=== PATIENT | female | born 1945 | race Caucasian/White ===

== ENCOUNTER 2019-01-10 21:09 | Observation (INO) ==
[2019-01-10] MEDS ORDERED: Aspirin 81 MG TAB.CHEW PO STA (21:26)
--- NOTE | 2019-01-10 21:49 | Emergency Department Note ---
Disposition Clinical Impression: Dyspnea on minimal exertion Chest pain Qualifiers: Chest pain type: chest pain due to myocardial ischemia Ischemic chest pain type: stable angina pectoris Qualified Code(s): I20.8 - Other forms of angina pectoris Disposition: Admitted As Inpatient Condition: Fair Forms: ED Satisfaction Letter Time of Disposition: 23:06 General Adult HPI - General Chief complaint: ED Shortness of Breath/Dyspnea Stated complaint: SOB Chest pain Time Seen by Provider: 01/10/19 21:14 - History of Present Illness HPI Narrative: 73-year-old female history of prior MA and prior stroke presents to ED today with 2 days of shortness of breath and chest pain she reports that she has been having increasing difficulty performing her daily tasks at home, stating she is having worsening shortness of breath and chest pain with with her daily activities. She describes the pain as a pressure that is located in the center of her chest. This pain does not radiate. She rates the pain a 2 out of 10 on arrival to the ED, denies any radiation of the pain. She is a former smoker but quit more than 30 years ago. She is taking surround toe and a baby aspirin daily. She also reports taking a water pill, but also reports that she has not taken this pill for the last 2-3 days as the bottle fell onto her dresser and she was unable to retrieve it. EMS stated that on their arrival her O2 saturation was 91%, this quickly came up with administration nasal cannula oxygen. on arrival to the ED she is 99% on 2 L by nasal cannula. She denies any history of COPD. She reports nausea that is present over the same time, along with a nonproductive cough, and some mild pleuritic chest pain which she localizes to the upper sternum. She also reports a "feverish" feeling that she describes as a warmth in her face which comes and goes with the episodes of chest pain and shortness of breath. She denies any hemoptysis, numbness or tingling in the hands or feet, radiation of the pain to her back, abdominal pain, black or bloody stools, dysuria. Pain Scale: 0 - Related Data Home Medications Medication Instructions Recorded Confirmed Aspirin [Adult Low Dose Aspirin EC] 81 mg PO QPM 07/09/15 07/09/15 Insulin Glargine,Hum.rec.anlog 5 unit SQ DAILY 07/09/15 07/09/15 [Lantus Solostar] Insulin LISPRO [HumaLOG] 0 units SQ ACHS 07/09/15 07/09/15 Losartan Potassium [Cozaar] 50 mg PO DAILY 07/09/15 07/09/15 Metoprolol [Lopressor] 25 mg PO BID 07/09/15 07/09/15 Multivit-Min/FA/Lycopen/Lutein 1 each PO QPM 07/09/15 07/09/15 [Centrum Silver Tablet] [place]-3/Dha/Epa/Fish Oil [Fish Oil 1 each PO QPM 07/09/15 07/09/15 [place]-3 EC 1,200 mg] Rivaroxaban [Xarelto] 15 mg PO QPM 07/09/15 07/09/15 Brimonidine 0.2% [Alphagan] 1 drop RIGHT EYE BID 01/10/19 01/10/19 Chlorthalidone 25 mg PO DAILY 01/10/19 01/10/19 Latanoprost/Pf [Latanoprost 0.005% 1 drop OP HS 01/10/19 01/10/19 Eye Drop] Timolol Maleate 0.5% 1 drop RIGHT EYE BID 01/10/19 01/10/19 Travoprost [Travatan Z] 1 drop OP BID 01/10/19 01/10/19 Allergies Allergy/AdvReac Type Severity Reaction Status Date / Time Sulfa (Sulfonamide Allergy Swelling Verified 07/05/15 17:41 Antibiotics) of Lip/Tongue/Throat Locgwtv-[id number]-[id number] Reductase AdvReac Cramping Verified 07/09/15 20:36 Inhibitor of the [Statins] Muscles All systems ED: reviewed and negative except as stated. Review of Systems: As Per HPI Constitutional: Reports: fever ("Warmth in the face" present with the episodes of shortness of breath and chest). Denies: chills, weakness Cardiovascular: Reports: chest pain, dyspnea on exertion Respiratory: Reports: cough (Dry nonproductive cough), dyspnea. Denies: hemoptysis, sputum production Gastrointestinal: Reports: nausea (Mild nausea). 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 Absent: PERRL (Upward deviation of the left eye, corneal cloudiness.) - ENT ENT exam: mucous membranes moist - Neck Neck exam: Present: trachea midline - Chest Chest inspection: Present: normal inspection, symmetric chest wall rise - Respiratory Respiratory exam: Present: normal lung sounds bilaterally. Absent: respiratory distress, wheezes - Cardiovascular Cardiovascular exam: Present: regular rate, normal rhythm, +S4. Absent: systolic murmur, diastolic murmur - Abdominal Exam Abdominal exam: Present: soft, Non-Tender - Extremities Exam Extremities exam: Present: normal inspection. Absent: pedal edema, joint swelling, calf tenderness - Back Exam Back exam: Present: normal inspection, full ROM - Neurological Exam Neurological exam: Present: alert, oriented X3, CN II-XII intact (Other than left eye deviation noted above) - Psychiatric Psychiatric exam: Present: normal affect, normal mood. Absent: depressed, agitated, anxious - Skin Skin exam: Present: warm, dry, intact, normal color Course - Reevaluation(s) Reevaluation #1: Blood work delayed by a necessity for ultrasound line. Nurse notified me of this, and is attempting an ultrasound Time: 22:07 Reevaluation #2: A d-dimer was obtained Despite Well's score of 0 due to the patient's age, ill- defined symptoms, and pre-existing vascular disease. The value came back at 579, which is flagged as high by our lab, but age-adjusted d-dimer limit is 750, making this a negative result Time: 22:49 Reevaluation #3: While talking to the patient about the decision to admit her to the hospital, a temporarily turned off her oxygen. After about 2 minutes of talking her oxygen saturation fell to 95%, at which time I turned on 2 L but her nasal cannula with rapid return to 99% Time: 23:46 Vital Signs Temperature 99.4 F 07/16/19 21:13 Pulse Rate 73 01/10/19 21:13 Respiratory Rate 17 01/10/19 21:13 Blood Pressure 162/70 01/10/19 21:13 O2 Sat by Pulse Oximetry 99 01/10/19 21:13 Temperature 99.4 F 01/10/19 21:13 Pulse Rate 73 01/10/19 21:13 Respiratory Rate 17 01/10/19 21:13 Blood Pressure 162/70 01/10/19 21:13 O2 Sat by Pulse Oximetry 99 01/10/19 21:28 Oxygen Delivery Oxygen Delivery Nasal Cannula Medical Decision Making - MDM Narrative Medical decision making narrative: This pleasant 73-year-old female presented with 2 days of dyspnea and chest pain. The chest pain hit a history consistent with ACS , in that it was central in location, described as a pressure, worse with exertion, better with rest, and associated with shortness of breath. Furthermore the patient's history of MA and stroke were concerning for a vascular process. However her lab work including troponin and CBC, along with a chest x-ray and EKG that were not significantly different from old studies of record, were all negative for any acute process requiring intervention urgently. Aspects of her story's, such as a pleuritic aspect of her chest pain were concerning for PE, however an age adjusted d-dimer was negative. Heart score shown below puts patient at 12-16.6% risk of major acute cardiac event in the next 6 weeks, and as such she will be admitted for chest pain rule out. HEART Score for Major Cardiac Events from [email or web address] on 01/10/2019 All calculations should be rechecked by clinician prior to use RESULT SUMMARY: 5 points Moderate Score (4-6 points) Risk of MACE of 12-16.6%. INPUTS: History > 1 = Moderately suspicious EKG > 0 = Normal Age > 2 = ?65 Risk factors > 2 = ?3 risk factors or history of atherosclerotic disease Initial troponin > 0 = ?normal limit Chest X-Ray 01/10/19 21:20 IMPRESSION: Mild pulmonary vascular congestion with trace pleural fluid. Stable mild cardiomegaly. D/ / Harry Kirkland MD / Harry Kirkland MD Interpreting Provider: Harry Kirkland MD Vital Signs Temperature 99.4 F 01/10/19 21:13 Pulse Rate 73 01/10/19 21:13 Respiratory Rate 17 01/10/19 21:13 Blood Pressure 162/70 01/10/19 21:13 O2 Sat by Pulse Oximetry 99 01/10/19 21:13 Temperature 99.4 F 01/10/19 21:13 Pulse Rate 73 01/10/19 21:13 Respiratory Rate 01/10/19 23:44 Blood Pressure 164/68 01/10/19 23:44 O2 Sat by Pulse Oximetry 99 01/10/19 21:28 Oxygen Delivery Oxygen Delivery Nasal Cannula - Medical Records Medical records reviewed: Yes I reviewed the patient's medical records. - Lab Data Lab results reviewed: Yes I reviewed the patient's lab results. Result diagrams: 01/10/19 22:09 01/10/19 22:09 Lab Results 01/10/19 01/10/19 01/10/19 Range/Units 22:09 22:09 22:09 WBC 10.3 (4.3-11.1) K/mcL RBC 4.02 (3.82-4.97) M/mcL Hgb 12.7 (11.5-15.4) g/dL Hct 38.9 (35.3-44.9) % MCV 96.8 (83.0-100.0) fL MCH 31.6 (28.0-33.3) pg MCHC 32.6 (31.6-35.5) g/dL RDW 13.6 (11.5-14.5) % Plt Count 260 (140-400) K/mcL MPV 10.1 (9.4-12.4) fL Immature Gran % 0.3 (0-4) % Seg Neutrophils % 80.3 % Lymphocytes % 7.4 % Monocytes % 8.3 % Eosinophils % 3.2 % Basophils % 0.5 % Neutrophils # 8.3 (1.6-8.9) K/mcL Lymphocytes # 0.8 (0.6-4.6) K/mcL Monocytes # 0.9 (0.0-1.3) K/mcL Eosinophils # 0.3 (0.0-0.6) K/mcL Basophils # 0.1 (0.0-0.2) K/mcL PT 12.4 H (9.4-12.1) Seconds INR 1.1 APTT 33.6 (26.0-36.0) Seconds D-Dimer 579 H (0-500) ng/mLFEU Sodium 136 (136-145) mEq/L Potassium 3.9 (3.5-5.1) mEq/L Chloride 107 (98-107) mEq/L Carbon Dioxide 19 L (23-29) mEq/L BUN 20 (8-23) mg/dL Creatinine 0.94 (0.60-1.20) mg/dL Est GFR ( Amer) > 60 (> 60) Est GFR (Non-Af Amer) 58 L (> 60) BUN/Creatinine Ratio 21 (6-26) Glucose 255 H (70-105) mg/dL Calculated Osmolality 293 (280-300) Calcium 8.5 L (8.6-10.3) mg/dL Troponin I < 0.03 (< 0.04) ng/mL - Radiology Data Radiology results reviewed: Yes I reviewed the patient's radiology results. - EKG Data EKG #1 EKG results narrative: EKG recorded at 2123 shows an atrial paced rhythm at a rate of 70 MO interval of 185 QRS of 91 with a QTC of 435. No obvious signs of acute pathology. No ST segment elevations or depressions, slight T-wave inversions isolated to lead aVL. when compared with prior EKG recorded on 2015, lead aVL shows flattened T waves. No pathologic Q waves, good R-wave progression Heart Score - Score History: Moderately Suspicious EKG: Normal Age: Greater than 65 Risk Factors: Equal/Greater than 3 risk factor or history of atherosclerotic disease Troponin: Less than normal limit HEART Score Total: 5
--- NOTE | 2019-01-10 22:13 | Emergency Department Note ---
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) Nursing Notes Reviewed: Yes Vital Signs Reviewed: Yes - History of Present Illness Pain Scale: 0 - Related Data Home Medications Medication Instructions Recorded Confirmed Aspirin [Adult Low Dose Aspirin EC] 81 mg PO QPM 07/09/15 01/10/19 Insulin Glargine,Hum.rec.anlog 15 unit SQ DAILY 07/09/15 01/10/19 [Lantus Solostar] Insulin LISPRO [HumaLOG] 0 units SQ ACHS 07/09/15 01/10/19 Losartan Potassium [Cozaar] 25 mg PO DAILY 07/09/15 01/10/19 Metoprolol [Lopressor] 25 mg PO DAILY 07/09/15 01/10/19 Multivit-Min/FA/Lycopen/Lutein 1 each PO QPM 07/09/15 01/10/19 [Centrum Silver Tablet] [place]-3/Dha/Epa/Fish Oil [Fish Oil 1 each PO QPM 07/09/15 01/10/19 [place]-3 EC 1,200 mg] Rivaroxaban [Xarelto] 15 mg PO QPM 07/09/15 01/10/19 Brimonidine 0.2% [Alphagan] 1 drop RIGHT EYE BID 01/10/19 01/10/19 Chlorthalidone 25 mg PO DAILY 01/10/19 01/10/19 Latanoprost/Pf [Latanoprost 0.005% 1 drop OP HS 01/10/19 01/10/19 Eye Drop] Timolol Maleate 0.5% 1 drop RIGHT EYE BID 01/10/19 01/10/19 Travoprost [Travatan Z] 1 drop OP BID 01/10/19 01/10/19 Allergies Allergy/AdvReac Type Severity Reaction Status Date / Time Sulfa (Sulfonamide Allergy Swelling Verified 07/05/15 17:41 Antibiotics) of Lip/Tongue/Throat Ystrzwk-Gog-Rkq Reductase AdvReac Cramping Verified 07/09/15 20:36 Inhibitor of the [Statins] Muscles Constitutional: Reports: fever ("Warmth in the face" present with the episodes of shortness of breath and chest). Denies: chills, weakness Cardiovascular: Reports: chest pain, dyspnea on exertion Respiratory: Reports: cough (Dry nonproductive cough), dyspnea. Denies: hemoptysis, sputum production Gastrointestinal: Reports: nausea (Mild nausea). 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 - Lab Data Lab results reviewed: Yes I reviewed the patient's lab results. Result diagrams: 01/10/19 22:09 01/10/19 22:09 Lab Results 01/10/19 01/10/19 01/10/19 Range/Units 22:09 22:09 22:09 WBC 10.3 (4.3-11.1) K/mcL RBC 4.02 (3.82-4.97) M/mcL Hgb 12.7 (11.5-15.4) g/dL Hct 38.9 (35.3-44.9) % MCV 96.8 (83.0-100.0) fL MCH 31.6 (28.0-33.3) pg MCHC 32.6 (31.6-35.5) g/dL RDW 13.6 (11.5-14.5) % Plt Count 260 (140-400) K/mcL MPV 10.1 (9.4-12.4) fL Immature Gran % 0.3 (0-4) % Seg Neutrophils % 80.3 % Lymphocytes % 7.4 % Monocytes % 8.3 % Eosinophils % 3.2 % Basophils % 0.5 % Neutrophils # 8.3 (1.6-8.9) K/mcL Lymphocytes # 0.8 (0.6-4.6) K/mcL Monocytes # 0.9 (0.0-1.3) K/mcL Eosinophils # 0.3 (0.0-0.6) K/mcL Basophils # 0.1 (0.0-0.2) K/mcL PT 12.4 H (9.4-12.1) Seconds INR 1.1 APTT 33.6 (26.0-36.0) Seconds D-Dimer 579 H (0-500) ng/mLFEU Sodium 136 (136-145) mEq/L Potassium 3.9 (3.5-5.1) mEq/L Chloride 107 (98-107) mEq/L Carbon Dioxide 19 L (23-29) mEq/L BUN 20 (8-23) mg/dL Creatinine 0.94 (0.60-1.20) mg/dL Est GFR ( Amer) > 60 (> 60) Est GFR (Non-Af Amer) 58 L (> 60) BUN/Creatinine Ratio 21 (6-26) Glucose 255 H (70-105) mg/dL Calculated Osmolality 293 (280-300) Calcium 8.5 L (8.6-10.3) mg/dL Troponin I < 0.03 (< 0.04) ng/mL - Radiology Data Radiology results reviewed: Yes I reviewed the patient's radiology results. Chest X-Ray 01/10/19 21:20 IMPRESSION: Mild pulmonary vascular congestion with trace pleural fluid. Stable mild cardiomegaly. D/ / Harry Kirkland MD / Harry Kirkland MD Interpreting Provider: Harry Kirkland MD - EKG Data EKG #1 EKG attestation: Yes I reviewed and interpreted this EKG. EKG results narrative: EKG shows an atrial paced rhythm with ventricular rate of 70. No significant ST segment elevation or depression. No significant change from prior EKG dated 07/05/2015. Attestation Statement - Attestation Attestation: I, Aidan Arevalo MD, personally evaluated this patient and discussed their management with the resident physician. I reviewed the resident's note and agree with the documented findings, medical decision making, and plan of care. I reviewed the residents documentation and agree with the residents assessment and plan of care. I have personally had face to face time with the patient. I personally supervised and was present for the linares/critical portions of the following procedures completed by the resident: EKG interpretation. 73-year-old female presents to the emergency department with a complaint of increasing shortness of breath over the past 2 days. Also intermittent chest pain. Shortness breath is worse with exertion. Also the chest pain is associated with exertion and improved with rest. She does not wear home oxygen. She does have a history of CHF. History of atrial fibrillation with a pacemaker and is on Xarelto. She describes the chest pain as just a mild pressure-like discomfort in the mid chest. No radiation. There has been a mild nonproductive cough. Subjective low-grade fever. EMS reports on their arrival her oxygen saturation was 91% on room air. They placed her on oxygen by nasal cannula and she came into the upper 90s rapidly. On examination patient is a well-developed obese elderly female in no acute distress. She is alert and oriented 3. There is no cyanosis or diaphoresis. She speaks in full sentences and does not appear short of breath clinically. Breath sounds are clear and equal bilaterally. Heart regular rate and rhythm. Abdomen soft and nontender with normal bowel sounds. Trace pedal edema. EKG shows an atrial paced rhythm with ventricular rate of 70. No significant ST segment elevation or depression. No significant change from prior EKG dated 07/05/2015. Chest x-ray shows mild pulmonary vascular congestion with trace pleural fluid and stable mild cardiomegaly. Labs reviewed. Troponin less than 0.03. D-dimer 579 which falls within patient's age-adjusted range. The hospitalist, Dr. Wen, was consulted and accepted admission of the patient.
[2019-01-10 22:23] LABS: Basophils # 0.1 K/mcL (0.0-0.2); Basophils % 0.5 %; Eosinophils # 0.3 K/mcL (0.0-0.6); Eosinophils % 3.2 %; Hematocrit 38.9 % (35.3-44.9); Hemoglobin 12.7 g/dL (11.5-15.4); Immature Granulocytes % 0.3 % (0-4); Lymphocytes # 0.8 K/mcL (0.6-4.6); Lymphocytes % 7.4 %; Mean Corpuscular HGB Conc 32.6 g/dL (31.6-35.5); Mean Corpuscular Hemoglobin 31.6 pg (28.0-33.3); Mean Corpuscular Volume 96.8 fL (83.0-100.0); Mean Platelet Volume 10.1 fL (9.4-12.4); Monocytes # 0.9 K/mcL (0.0-1.3); Monocytes % 8.3 %; Neutrophils # 8.3 K/mcL (1.6-8.9); Platelet Count 260 K/mcL (140-400); Red Blood Count 4.02 M/mcL (3.82-4.97); Red Cell Distribution Width 13.6 % (11.5-14.5); Segmented Neutrophils % 80.3 %; White Blood Count 10.3 K/mcL (4.3-11.1)
[2019-01-10 22:32] LABS: INR 1.1; Prothrombin Time 12.4 Seconds (9.4-12.1)
[2019-01-10 22:35] LABS: Activated Partial Thrombo Time 33.6 Seconds (26.0-36.0)
[2019-01-10 22:45] LABS: BUN/Creatinine Ratio 21 (6-26); Blood Urea Nitrogen 20 mg/dL (8-23); Calcium 8.5 mg/dL (8.6-10.3); Carbon Dioxide 19 mEq/L (23-29); Chloride 107 mEq/L (98-107); Glucose 255 mg/dL (70-105); Osmolality,Calculated 293 (280-300); Potassium 3.9 mEq/L (3.5-5.1); Sodium 136 mEq/L (136-145); eGFR For African Americans > 60 (> 60); eGFR For Non-African Americans 58 (> 60)
[2019-01-10 22:46] LABS: Troponin I < 0.03 ng/mL (< 0.04)
[2019-01-11] MEDS ORDERED: Naloxone 0.4 MG/ML INJ IVP PRN (05:53)
[2019-01-11] MEDS ORDERED: Nitroglycerin 0.4 MG TAB.SUBL SL PRN (05:54)
[2019-01-11] MEDS ORDERED: *HR* Dextrose 50 % in Water (Syg) 50 ML SYRINGE IVP PRN (05:55)
[2019-01-11] MEDS ORDERED: D5% in Water 1,000 ML IVC PRN (05:55)
[2019-01-11] MEDS ORDERED: Dextrose Gel 15 GM/37.5 ML TUBE PO PRN ×2 (05:55)
--- NOTE | 2019-01-11 06:04 | Internal Med History&Physical ---
Date of Encounter: 01/11/19 Time of Encounter: 05:40 Internal Medicine - H&P: HPI Chief complaint: Chest pain Admitted From: Emergency Dept Plans for Post Hospital Care: Home History of present illness: Ms. Crawford is a 73 year old female Patient presented to the emergency department with shortness of breath and chest pain for 2 days. She says the pain is across her chest, but does not radiate.. When the pain started, she expected it to go away on its own, but it did not, in the last few hours prior to her presentation to the ER the pain increased. She also says that she has not had much of an appetite lately, and has felt nauseous but she has not vomited. She has been coughing, but is not productive. In the emergency department patient's dismissal vital signs: Temperature 99.4, pulse 73, respiratory rate 17, but pressure 162/70, O2 saturation 99% on 2 L. CBC within normal limits BMP notable of GFR 58 which is patient's baseline Troponin undetectable Calcium 8.5 INR 1.1 D-dimer 579, age adjusted, not elevated. Chest x-ray showed pulmonary vascular congestion with trace pleural fluid EKG: Atrial paced rhythm, rate 70, QTC 435. In the emergency department, patient received a 324 mg dose of aspirin, and was admitted to the hospital for further management. Upon my evaluation, patient is resting comfortably in hospital bed in no acute distress. She says that she still has chest pain, but it is 2 out of 10. She denies abdominal pain, nausea, vomiting, diarrhea and constipation. She is blind. She has a history of diabetes. She says that the oxygen that she was put on has helped her chest pain considerably. She is a full code. Past Med Surg Social Fam HX - Past Medical History Medical history: atrial fibrillation, CHF, diabetes, hyperlipidemia, hypertension, myocardial infarction Additional medical history: LEGALLY BLIND, PACEMAKER Psychiatric history: no psych history - Past Surgical History Surgical History: hysterectomy Additional surgical history: pacemaker, Left arm - Social History Smoking Status: Never smoker Smokeless Tobacco Status: No Alcohol use: none Drug use: none - Family History Mother Living Status: Father Living Status: Internal Medicine - H&P: Meds Aspirin [Adult Low Dose Aspirin EC] 81 mg PO QPM 07/09/15 [History] Insulin Glargine,Hum.rec.anlog [Lantus Solostar] 15 unit SQ DAILY 07/09/15 [History] Insulin LISPRO [HumaLOG] 0 units SQ ACHS 07/09/15 [History] Losartan Potassium [Cozaar] 25 mg PO DAILY 07/09/15 [History] Metoprolol [Lopressor] 25 mg PO DAILY 07/09/15 [History] Multivit-Min/FA/Lycopen/Lutein [Centrum Silver Tablet] 1 each PO QPM 07/09/15 [History] [place]-3/Dha/Epa/Fish Oil [Fish Oil [place]-3 EC 1,200 mg] 1 each PO QPM 07/09/15 [History] Rivaroxaban [Xarelto] 15 mg PO QPM 07/09/15 [History] Brimonidine 0.2% [Alphagan] 1 drop RIGHT EYE BID 01/10/19 [History] Chlorthalidone 25 mg PO DAILY 01/10/19 [History] Latanoprost/Pf [Latanoprost 0.005% Eye Drop] 1 drop OP HS 01/10/19 [History] Timolol Maleate 0.5% 1 drop RIGHT EYE BID 01/10/19 [History] Travoprost [Travatan Z] 1 drop OP BID 01/10/19 [History] Allergy/AdvReac Type Severity Reaction Status Date / Time Sulfa (Sulfonamide Allergy Swelling Verified 07/05/15 17:41 Antibiotics) of Lip/Tongue/Throat Vrxdthd-Tyn-Ftc Reductase AdvReac Cramping Verified 07/09/15 20:36 Inhibitor of the [Statins] Muscles All Systems PM: A 10-system review of systems was performed and is negative for pertinent findings except as documented above in the HPI. - Constitutional Vitals: Temp Pulse Resp BP Pulse Ox 98.5 F 67 22 161/64 94 01/11/19 04:55 01/11/19 04:55 01/11/19 04:55 01/11/19 04:55 01/11/19 04:55 General appearance: Present: cooperative, A&O X 3, pleasant, no acute distress, answers questions appropriately Exam: - - Head Head exam: Present: normal inspection - Eye Eye exam: Absent: scleral icterus - Respiratory Respiratory exam: Present: CTAB. Absent: decreased breath sounds, rales, respiratory distress, rhonchi, wheezes - Cardiovascular Cardiovascular exam: Present: RRR. Absent: diastolic murmur, systolic murmur - GI/Abdominal GI/Abdominal exam: Present: normal bowel sounds, soft. Absent: tenderness - Extremities Exam Extremities exam: Present: warm, radial pulses palpable and symmetrical. Abse nt: calf tenderness, pedal edema, tenderness - Neurological Exam Neurological exam: Present: no focal deficits, strengths equal and symetr throughout. Absent: motor sensory deficit, facial droop, speech deficit - Skin Skin exam: Present: dry, normal color, warm Internal Med - H&P Results - Labs CBC & Chem 7: 01/10/19 22:09 01/10/19 22:09 Labs: Short CBC 01/10/19 Range/Units 22:09 WBC 10.3 (4.3-11.1) K/mcL Hgb 12.7 (11.5-15.4) g/dL Hct 38.9 (35.3-44.9) % Plt Count 260 (140-400) K/mcL Neutrophils # 8.3 (1.6-8.9) K/mcL BMP 01/10/19 22:09 Sodium 136 Potassium 3.9 Chloride 107 Carbon Dioxide 19 L BUN 20 Creatinine 0.94 Glucose 255 H Calcium 8.5 L Cardiac Enzymes 01/10/19 Range/Units 22:09 Troponin I < 0.03 (< 0.04) ng/mL - Impressions ITS Impressions Chest X-Ray 01/10/19 21:20 IMPRESSION: Mild pulmonary vascular congestion with trace pleural fluid. Stable mild cardiomegaly. D/ / Harry Kirkland MD / Harry Kirkland MD Interpreting Provider: Harry Kirkland MD - Assessment and Plan (1) Chest pain Current Visit: Yes Status: Acute Assessment and plan: Now improved. Patient was placed on oxygen and says that her pain has almost gone away. Chest pain reproducible with palpation across the chest. Patient has been coughing which could be a potential cause. An echocardiogram performed last month showed: Impressions: LVEF 60%. Normal LV chamber size and function. Mild concentric left ventricular hypertrophy. Moderate left ventricular diastolic dysfunction. Normal right ventricular structure and function. Mild tricuspid regurgitation. Mild pulmonary hypertension. A device lead was visualized in the right atrium and right ventricle. Continue to trend troponin Cardiac monitoring Continue oxygen supplementation Nitroglycerin for pain as needed Qualifiers: Chest pain type: chest pain due to myocardial ischemia Ischemic chest pain type: stable angina pectoris Qualified Code(s): I20.8 - Other forms of angina pectoris (2) Diabetes Current Visit: No Status: Acute Assessment and plan: Patient is an insulin dependent diabetic Monitor sugars every 6 hours Nothing by mouth Low dose insulin sliding scale as needed Hold home meds. Qualifiers: Diabetes mellitus type: type 2 Diabetes mellitus complication status: with hyperglycemia Qualified Code(s): E11.65 - Type 2 diabetes mellitus with hyperglycemia; Z79.4 - assisted (current) use of insulin (3) Dyspnea on minimal exertion Current Visit: Yes Status: Acute Assessment and plan: Patient symptoms improved with 2 L of oxygen. She is not on oxygen at home. Patient may benefit from home oxygen. Patient's lung sounds clear on exam. Chest imaging showed mild pulmonary vascular changes with trace pleural fluid Continue oxygen supplementation Imaging chest pain as above (4) DVT prophylaxis Current Visit: Yes Status: Acute Assessment and plan: Patient has a history of atrial fibrillation, takes Xarelto. Continue Xarelto - Time Spent With Patient Total time spent is greater than 50% in coordination of care (as documented) at patient's floor/unit and/or counseling patient: Greater than 35 minutes
[2019-01-11 06:34] LABS: Mean Corpuscular HGB Conc 31.1 g/dL (31.6-35.5); Mean Corpuscular Hemoglobin 31.4 pg (28.0-33.3); Mean Corpuscular Volume 101.1 fL (83.0-100.0); Mean Platelet Volume 11.3 fL (9.4-12.4); Platelet Count 134 K/mcL (140-400); Red Blood Count 4.55 M/mcL (3.82-4.97); Red Cell Distribution Width 13.8 % (11.5-14.5); White Blood Count 10.2 K/mcL (4.3-11.1)
[2019-01-11 07:00] LABS: BUN/Creatinine Ratio 20 (6-26); Blood Urea Nitrogen 18 mg/dL (8-23); Carbon Dioxide 21 mEq/L (23-29); Chloride 104 mEq/L (98-107); Glucose 178 mg/dL (70-105); Osmolality,Calculated 292 (280-300); Potassium 3.8 mEq/L (3.5-5.1); Sodium 138 mEq/L (136-145); eGFR For African Americans > 60 (> 60); eGFR For Non-African Americans > 60 (> 60)
[2019-01-11 07:07] LABS: Troponin I < 0.03 ng/mL (< 0.04)
[2019-01-11] MEDS ORDERED: hydrOXYzine pamoate 25 MG CAPSULE PO ONE (07:15)
[2019-01-11] MEDS: Insulin LISPRO 300 UNITS/3 ML VIAL SQ SCH ×4 (07:58→23:44)
[2019-01-11 08:10] LABS: Hemoglobin 14.3 g/dL (11.5-15.4)
[2019-01-11] MEDS ORDERED: NON-FORMULARY MEDICATION 1 EACH EACH (Travoprost [Travatan Z] 1 DROP) OP SCH (09:00)
--- NOTE | 2019-01-11 09:24 | Event Note ---
<Ching Gillespie Bishop - Last Filed: 01/11/19 18:04> Date of Encounter: 01/11/19 Time of Encounter: 09:45 Ms. Crawford is a 73 year old female with PMH of atrial fibrillation on pacemaker and coumadin , CHF, diabetes, hyperlipidemia, hypertension, myocardial infarction presented to the emergency department with shortness of breath and chest pain for 2 days, substernal , no radiation aggravated by exertion and relieved by NG . today patient was doing better denies , chest pain , no SOB +mild cough with slightly swelling of lower limbs.She denies abdominal pain, nausea, vomiting, diarrhea and constipation EKG: Atrial paced rhythm,Chest x-ray showed pulmonary vascular congestion with trace pleural fluid, D dimer was 579 so CTA was done for her and came back negative for any pulmonary embolism her vitals : T 98.2, HR 70 , rr 16 , bp 162/61 lab are normal PE : General: no acute distress , A&AX3 HEENT: Atraumatic, Normocephaly. sclera unicteric Neck: supple , Full ROM Cardiac: regular rythm , S1+. S2+ Lungs: Normal Breath Sounds, No Wheeze, Rales, Rhonchi Abdomen: Soft, Non-Tender Skin:very dry skin , No rashes noted on visualized skin , Extremities: BLL Edema +1 , No Clubbing, No Cyanosis, , Normal Pulses A/P 1- CHEST PAIN : presented to the emergency department with shortness of breath and chest pain for 2 days, substernal , no radiation aggravated by exertion and relieved by NG troponin 0.03 EKG negative for any ischemic changes CTA was done for her and came back negative for any pulmonary embolism An echocardiogram performed last month showed:LVEF 60%. plan :Continue to trend troponin Cardiac monitoring Continue oxygen supplementation Nitroglycerin for pain as needed plan for stress test dorian 2- DM: She is a known case of DM . today blood sugar 178 . she is on sliding scale insulin continue accu check diabetic diet <Robinson Boyer - Last Filed: 01/11/19 18:37> Date of Encounter: 01/11/19 Ms Crawford is currently in observation for chest pain. CTA of chest - no PE. Appears to have pulmonary edema. Fullness in R hilum - ? adenopathy. Will make NPO at midnight. May need pulm to see. She is pain free now. Troponins negative x 3.
[2019-01-11] MEDS ORDERED: Isovue-370 500 ML BOTTLE IVP ONE (13:20)
[2019-01-11] MEDS ORDERED: Lacri-Lube 3.5 GM TUBE RIGHT EYE PRN (15:55)
[2019-01-11] MEDS ORDERED: Furosemide 20 MG/2 ML VIAL IVP ONE (16:33)
[2019-01-11] MEDS ORDERED: Aspirin Enteric Coated 81 MG Tablet PO SCH (18:00)
[2019-01-11] MEDS ORDERED: *HR* Rivaroxaban 15 MG TABLET PO SCH (18:00)
[2019-01-11] MEDS ORDERED: Latanoprost 2.5 ML BOTTLE BOTH EYES SCH (21:00)
[2019-01-11] MEDS ORDERED: Insulin DETEMIR 100 UNIT/ML X5UNITS SQ SCH (21:00)
[2019-01-12 05:22] LABS: Basophils # 0.1 K/mcL (0.0-0.2); Basophils % 0.8 %; Eosinophils # 0.4 K/mcL (0.0-0.6); Eosinophils % 4.7 %; Immature Granulocytes % 0.4 % (0-4); Lymphocytes # 0.7 K/mcL (0.6-4.6); Lymphocytes % 9.4 %; Mean Corpuscular HGB Conc 32.9 g/dL (31.6-35.5); Mean Corpuscular Hemoglobin 31.3 pg (28.0-33.3); Mean Corpuscular Volume 95.2 fL (83.0-100.0); Mean Platelet Volume 9.9 fL (9.4-12.4); Monocytes # 0.8 K/mcL (0.0-1.3); Monocytes % 10.5 %; Neutrophils # 5.9 K/mcL (1.6-8.9); Platelet Count 276 K/mcL (140-400); Red Blood Count 3.99 M/mcL (3.82-4.97); Red Cell Distribution Width 13.5 % (11.5-14.5); Segmented Neutrophils % 74.2 %; White Blood Count 7.9 K/mcL (4.3-11.1)
[2019-01-12 05:25] LABS: Hemoglobin 12.5 g/dL (11.5-15.4)
[2019-01-12 05:31] LABS: INR 1.3; Prothrombin Time 14.9 Seconds (9.4-12.1)
[2019-01-12 05:41] LABS: BUN/Creatinine Ratio 20 (6-26); Blood Urea Nitrogen 19 mg/dL (8-23); Calcium 9.1 mg/dL (8.6-10.3); Carbon Dioxide 24 mEq/L (23-29); Chloride 103 mEq/L (98-107); Glucose 165 mg/dL (70-105); Osmolality,Calculated 292 (280-300); Potassium 3.5 mEq/L (3.5-5.1); Sodium 138 mEq/L (136-145); eGFR For African Americans > 60 (> 60); eGFR For Non-African Americans 56 (> 60)
[2019-01-12] MEDS: Insulin LISPRO 300 UNITS/3 ML VIAL SQ SCH ×2 (05:48→12:10)
--- NOTE | 2019-01-12 08:14 | Pulmonology Consult Note ---
<Guy Dugan - Last Filed: 01/12/19 15:19> Date of Encounter: 01/12/19 Time of Encounter: 09:45 Assessment and Plan (1) Abnormal CT of the chest Status: Acute Multiple mildly prominent mediastinal nodes noted on CTA chest from 01/11/19 Pt is a former smoker with 10 pack year hx from [address] findings with pt and her daughter who was at bedside. Explained this may be pulmonary congestion vs malignancy. Recommend non-emergent bronchoscopy for lymph node biopsy. However pt does take Xarelto for her atrial fibrillation. Discussed with the patient that this will need to be stopped prior to the bronchoscopy. Recommend cardiology clearance prior to outpatient bronchoscopy. (2) Afib Status: Chronic Hx of Afib on Xarelto Pre-procedure cardiology evaluation recommended (3) Diastolic CHF Status: Chronic Presented complaining of chest pain and exertion dyspnea Echo from 12/02/18: - LVEF 60%. - Normal LV chamber size and function. - Mild concentric left ventricular hypertrophy. - Moderate left ventricular diastolic dysfunction. - Normal right ventricular structure and function. - Mild tricuspid regurgitation. - Mild pulmonary hypertension. - A device lead was visualized in the right atrium and right ventricle. Pt was given 20mg IV Lasix on 01/11/19 with no increase in UOP CT findings suggestive of pulmonary edema. She received 20mg IV Lasix without increase in UOP Mediastinal nodes may also be related with pulmonary congestion. Will follow as above (4) Diabetes Status: Chronic per primary team History of Present Illness Consult date: 01/12/19 Reason for consult: chest pain, abnormal CXR/CT Chief complaint: Chest Pain History of present illness: Ms. Crawford is a 73F with PMH of Afib, CHF, and diabetes. She was admitted on 01/11/19 for complaints of chest pain of 2 days duration. Vital signs in the ED were grossly unremarkable except for HTN of 162/70. CXR from the ED showed mild pulmonary vascular congestion with trace pleural fluid. EKG showed atrial paced rhythm. She was given 324mg ASA while in the ED. CTA chest was also obtained which was negative for PE, but did reveal multiple mildly prominent mediastinal nodes. Pulmonology was consulted for further evaluation of these CTA chest findings. Pt seen and examined at bedside. Reports her chest pain has resolved at this time. Denies any shortness of breath, increased cough, or increased sputum production. She reports she is a former smoker, and quit 20 years ago. Reports prior to that she smoked 1ppd for 10 years. She denies any night sweats, or hemoptysis. Past Med Surg Social Fam HX - Past Medical History Medical history: atrial fibrillation, CHF, diabetes, hyperlipidemia, hypertension, myocardial infarction Additional medical history: LEGALLY BLIND, PACEMAKER Psychiatric history: no psych history - Past Surgical History Surgical History: hysterectomy Additional surgical history: pacemaker, Left arm - Social History Smoking Status: Never smoker Smokeless Tobacco Status: No Alcohol use: none Drug use: none - Family History Mother Living Status: Father Living Status: Medications and Allergies Losartan Potassium [Cozaar] 25 mg PO QAM 07/09/15 [History] Metoprolol [Lopressor] 25 mg PO DAILY 07/09/15 [History] Multivit-Min/FA/Lycopen/Lutein [Centrum Silver Tablet] 1 each PO QAM 07/09/15 [History] [place]-3/Dha/Epa/Fish Oil [Fish Oil [place]-3 EC 1,200 mg] 1 each PO QAM 07/09/15 [History] Rivaroxaban [Xarelto] 15 mg PO QPM 07/09/15 [History] Brimonidine 0.2% [Alphagan] 1 drop RIGHT EYE BID 01/10/19 [History] Chlorthalidone 25 mg PO QAM 01/10/19 [History] Latanoprost/Pf [Latanoprost 0.005% Eye Drop] 1 drop RIGHT EYE HS 01/10/19 [Hi story] Timolol Maleate 0.5% 1 drop RIGHT EYE BID 01/10/19 [History] Travoprost [Travatan Z] 1 drop RIGHT EYE HS 01/10/19 [History] Aspirin [Lo-Dose Aspirin EC] 81 mg PO QAM 01/11/19 [History] Carboxymethylcell/Hypromellose [Genteal Gel Drops] 1 drop RIGHT EYE DAILY PRN 01/11/19 [History] Insulin ASPART [Novolog Flexpen] 8 - 10 units SQ ACHS 01/11/19 [History] Insulin Glargine,Hum.rec.anlog [Basaglar Kwikpen U-100] 15 units SQ HS 01/11/19 [History] Ubidecarenone/Vit E/Vit E Mix [Co-Enzyme Q10 100 mg Softgel] 100 mg PO QAM 01/11/19 [History] Allergy/AdvReac Type Severity Reaction Status Date / Time Sulfa (Sulfonamide Allergy Swelling Verified 01/11/19 10:02 Antibiotics) of Lip/Tongue/Throat [place]uj[place]o-Lvu-Jcy Reductase AdvReac Cramping Verified 01/11/19 10:02 Inhibitor of the [Statins] Muscles All Systems: The remainder of the systems were reviewed and are negative - Constitutional Constitutional: no chills, no fever(s), no weakness - Cardiovascular Cardiovascular: chest pain, edema, no dyspnea - Respiratory Respiratory: no hemoptysis, no wheezing, no chest congestion, no excessive phlegm production, no change in phlegm color - Hematologic/Lymphatic Hematologic/Lymphatic: no easy bleeding, no easy bruising Physical Examination General appearance: no acute distress, alert Eyes: nonicteric, other (pt is legally blind ) Neck: supple Effort: normal Inspection: normal Auscultation: bilateral: clear Cardiovascular: regular rate and rhythm Gastrointestinal: soft, non-tender, non-distended Integumentary: normal Extremities: no cyanosis, no edema, no clubbing, pink and warm, pulses normal, no ischemia or petechiae Musculoskeletal: no deformities Gait: normal posture non-focal exam, pupils equal and round mood appropriate, affect normal Results - Laboratory Findings CBC and BMP: 01/12/19 04:37 01/12/19 04:37 PT/INR, D-dimer PT 14.9 Seconds (9.4-12.1) H 01/12/19 04:37 D-Dimer 579 ng/mLFEU (0-500) H 01/10/19 22:09 Abnormal lab findings: Abnormal lab results Hct 46.0 % (35.3-44.9) H 01/11/19 06:16 MCV 101.1 fL (83.0-100.0) H 01/11/19 06:16 MCHC 31.1 g/dL (31.6-35.5) L 01/11/19 06:16 Plt Count 134 K/mcL (140-400) L 01/11/19 06:16 PT 14.9 Seconds (9.4-12.1) H 01/12/19 04:37 D-Dimer 579 ng/mLFEU (0-500) H 01/10/19 22:09 Carbon Dioxide 21 mEq/L (23-29) L 01/11/19 06:16 Est GFR (Non-Af Amer) 56 (> 60) L 01/12/19 04:37 Glucose 165 mg/dL (70-105) H 01/12/19 04:37 POC Glucose 185 mg/dL (70-99) H 01/11/19 19:44 Calcium 8.5 mg/dL (8.6-10.3) L 01/10/19 22:09 - Diagnostic Findings Chest x-ray: report reviewed, image reviewed CT scan - chest: report reviewed, image reviewed - Clinical Findings Intake & Output: Intake & Output 01/11/19 01/12/19 01/12/19 23:59 07:59 15:59 Output Total 300 / 300 Balance -300 / -300 Weight 104.4 kg Consult Discharge Plan - Plan Additional Instructions: follow up with cardiology / PCP , pulmonology for out patient bronchoscope Referrals: Steph Morillo, [employer] [Primary Care Provider] - 01/20/19 10:00 am <Marco Mckinney - Last Filed: 01/14/19 01:07> Date of Encounter: 01/12/19 All Systems: The remainder of the systems were reviewed and are negative Results - Laboratory Findings CBC and BMP: 01/12/19 04:37 01/12/19 04:37 PT/INR, D-dimer PT 14.9 Seconds (9.4-12.1) H 01/12/19 04:37 D-Dimer 579 ng/mLFEU (0-500) H 01/10/19 22:09 Abnormal lab findings: Abnormal lab results Hct 46.0 % (35.3-44.9) H 01/11/19 06:16 MCV 101.1 fL (83.0-100.0) H 01/11/19 06:16 MCHC 31.1 g/dL (31.6-35.5) L 01/11/19 06:16 Plt Count 134 K/mcL (140-400) L 01/11/19 06:16 PT 14.9 Seconds (9.4-12.1) H 01/12/19 04:37 D-Dimer 579 ng/mLFEU (0-500) H 01/10/19 22:09 Carbon Dioxide 21 mEq/L (23-29) L 01/11/19 06:16 Est GFR (Non-Af Amer) 56 (> 60) L 01/12/19 04:37 Glucose 165 mg/dL (70-105) H 01/12/19 04:37 POC Glucose 160 mg/dL (70-99) H 01/12/19 05:43 Calcium 8.5 mg/dL (8.6-10.3) L 01/10/19 22:09 - Clinical Findings Intake & Output: Intake & Output 01/12/19 01/12/19 01/12/19 07:59 15:59 23:59 Weight 104.4 kg - Attending Attestation I examined this patient and my medical decision-making was reviewed with the Resident Physician. I agree with the documented findings, disposition and treatment plan as described except to the extent set forth below. Patient seen and examined. Labs, radiology, chart personally reviewed. 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 I had long discussion with patient and her daughter about patient's CT chest findings and there is adenopathy. Patient is really not interested in any invasive procedures. I have explained to her about bronchoscopy and I suspect those lymph nodes are reactive in nature, however malignancies can't be ruled out and I have explained to them this can be done as outpatient if needed to be done and she is more interested to have everything to be done as outpatient. I have told them I will be happy to arrange it for her. She is on anticoagulation and that will need to be stopped at least 1-2 days. I have discussed this with primary team. Cardiovascular: stable, however for such elective procedure, I will prefer cardiology clearance and we need to know if anticoagulation can be interrupted. GI: Nutrition per dietary and GI prophylaxis per routine Thanks a lot for consultation and please call for any questions.
[2019-01-12] MEDS ORDERED: Acetaminophen 325 MG TABLET PO PRN (08:15)
--- NOTE | 2019-01-12 08:41 | Internal Med Progress Note ---
Hospitalist Progress Note - Encounter Date of Encounter: 01/12/19 - Exam Vitals: Temp Pulse Resp BP Pulse Ox 99.0 F 65 16 151/63 94 01/12/19 03:28 01/12/19 03:28 01/12/19 03:28 01/12/19 03:28 01/12/19 03:28 - Time Spent with Patient Total time spent is greater than 50% in coordination of care (as documented) at patient's floor/unit and/or counseling patient: Internal Medicine: Result - Labs CBC & Chem 7: 01/12/19 04:37 01/12/19 04:37 Labs: Short CBC 01/12/19 Range/Units 04:37 WBC 7.9 (4.3-11.1) K/mcL Hgb 12.5 D (11.5-15.4) g/dL Hct 38.0 (35.3-44.9) % Plt Count 276 D (140-400) K/mcL Neutrophils # 5.9 (1.6-8.9) K/mcL BMP 01/12/19 04:37 Sodium 138 Potassium 3.5 Chloride 103 Carbon Dioxide 24 BUN 19 Creatinine 0.97 Glucose 165 H Calcium 9.1 Cardiac Enzymes 01/11/19 Range/Units 12:04 Troponin I < 0.03 (< 0.04) ng/mL - ABG Interpretation ABG results: PT/INR, D-dimer PT 14.9 Seconds (9.4-12.1) H 01/12/19 04:37 D-Dimer 579 ng/mLFEU (0-500) H 01/10/19 22:09 - Impressions Impressions Chest CTA 01/11/19 13:20 IMPRESSION: 1. No evidence of pulmonary embolic disease. 2. Bilateral pleural effusions with ground-glass opacification throughout the lungs consistent with edema. 3. Multiple mildly prominent mediastinal nodes. Infiltrative process in the right hilum concerning for adenopathy. Consider pulmonary consultation and close follow-up following treatment to exclude underlying malignancy. 4. Mild cardiomegaly. D/ / 01/11/2019 16:17:08 Aaron Baeza MD / sofia Interpreting Provider: Aaron Baeza MD Consult Discharge Plan - Plan Referrals: Steph Morillo, [employer] [Primary Care Provider] -
[2019-01-12] MEDS ORDERED: Aspirin Enteric Coated 81 MG Tablet PO SCH (09:00)
[2019-01-12 11:57] VITALS: BP 132/69
--- NOTE | 2019-01-12 13:22 | Discharge Summary ---
<Ching Gillespie I - Last Filed: 01/12/19 16:50> - NOTES TO OUTPATIENT PROVIDER Notes to Outpatient Provider: Patient admitted due to chest pain shortness of breath .she is discharged to home with a plan to follow-up with her primary care provider , pulmonology , and cardiology for outpatient bronchoscope and to be compliant with medication. Orders not resulted at time of discharge: Pending orders 01/10/19 21:20 ECG 12 lead ECG [ECG] Stat Date of Encounter: 01/12/19 Time of Encounter: 08:10 - Discharge Diagnosis (1) HTN (hypertension) Priority: Secondary Status: Chronic Qualifiers: Hypertension type: essential hypertension Qualified Code(s): I10 - Essential (primary) hypertension (2) Diabetes Priority: Secondary Status: Chronic Qualifiers: Diabetes mellitus type: type 2 Diabetes mellitus complication status: with hyperglycemia Qualified Code(s): E11.65 - Type 2 diabetes mellitus with hyperglycemia; Z79.4 - long term care administrator (current) use of insulin (3) Chest pain Priority: Primary Status: Acute Qualifiers: Chest pain type: chest pain due to myocardial ischemia Ischemic chest pain type: stable angina pectoris Qualified Code(s): I20.8 - Other forms of angina pectoris (4) Afib Priority: Secondary Status: Chronic Qualifiers: Atrial fibrillation type: unspecified Qualified Code(s): I48.91 - Unspecified atrial fibrillation (5) Abnormal CT of the chest Priority: Secondary Status: Acute Hospital course: Book is a 73 year old female with PMH of atrial fibrillation on pacemaker and coumadin , CHF, diabetes, hyperlipidemia, hypertension, myocardial infarction presented to the emergency department with shortness of breath and chest pain for 2 days, substernal , no radiation aggravated by exertion and relieved by NG, EKG was done and was negative for any ischemic changes , troponin was negative ,Chest x-ray showed pulmonary vascular congestion with trace pleural fluid, D dimer was 579 so CTA was done for her and came back negative for any pulmonary embolism bur show pulmonary edema and mediastinal LAP , pulmonary doctor was consulted bronchoscope was recommend but she refused to do it as inpatient . patient is doing better denies , chest pain , no SOB +mild cough with slightly swelling of lower limbs.She denies abdominal pain, nausea, vomiting, diarrhea and constipation . patient is dicharged home on her home med and advised to fol lowup with the PCP , cardiology due to her anticoagulant for an out patient bronchoscope . - Time Spent with Patient Total time spent providing and/or coordinating discharge services: - Discharge Medications Prescriptions: Continued Metoprolol [Lopressor] 25 mg PO DAILY Losartan Potassium [Cozaar] 25 mg PO QAM Rivaroxaban [Xarelto] 15 mg PO QPM [place]-3/Dha/Epa/Fish Oil [Fish Oil [place]-3 EC 1,200 mg] 1 each PO QAM Multivit-Min/FA/Lycopen/Lutein [Centrum Silver Tablet] 1 each PO QAM Chlorthalidone 25 mg PO QAM Timolol Maleate 0.5% 1 drop RIGHT EYE BID Brimonidine 0.2% [Alphagan] 1 drop RIGHT EYE BID Latanoprost/Pf [Latanoprost 0.005% Eye Drop] 1 drop RIGHT EYE HS Travoprost [Travatan Z] 1 drop RIGHT EYE HS Aspirin [Lo-Dose Aspirin EC] 81 mg PO QAM Carboxymethylcell/Hypromellose [Genteal Gel Drops] 1 drop RIGHT EYE DAILY PRN PRN Reason: STYE Insulin ASPART [Novolog Flexpen] 8 - 10 units SQ ACHS Insulin Glargine,Hum.rec.anlog [Basaglar Kwikpen U-100] 15 units SQ HS Ubidecarenone/Vit E/Vit E Mix [Co-Enzyme Q10 100 mg Softgel] 100 mg PO QAM Home Medications: Losartan Potassium [Cozaar] 25 mg PO QAM 07/09/15 [History] Metoprolol [Lopressor] 25 mg PO DAILY 07/09/15 [History] Multivit-Min/FA/Lycopen/Lutein [Centrum Silver Tablet] 1 each PO QAM 07/09/15 [History] [place]-3/Dha/Epa/Fish Oil [Fish Oil [place]-3 EC 1,200 mg] 1 each PO QAM 07/09/15 [History] Rivaroxaban [Xarelto] 15 mg PO QPM 07/09/15 [History] Brimonidine 0.2% [Alphagan] 1 drop RIGHT EYE BID 01/10/19 [History] Chlorthalidone 25 mg PO QAM 01/10/19 [History] Latanoprost/Pf [Latanoprost 0.005% Eye Drop] 1 drop RIGHT EYE HS 01/10/19 [History] Timolol Maleate 0.5% 1 drop RIGHT EYE BID 01/10/19 [History] Travoprost [Travatan Z] 1 drop RIGHT EYE HS 01/10/19 [History] Aspirin [Lo-Dose Aspirin EC] 81 mg PO QAM 01/11/19 [History] Carboxymethylcell/Hypromellose [Genteal Gel Drops] 1 drop RIGHT EYE DAILY PRN 01/11/19 [History] Insulin ASPART [Novolog Flexpen] 8 - 10 units SQ ACHS 01/11/19 [History] Insulin Glargine,Hum.rec.anlog [Basaglar Kwikpen U-100] 15 units SQ HS 01/11/19 [History] Ubidecarenone/Vit E/Vit E Mix [Co-Enzyme Q10 100 mg Softgel] 100 mg PO QAM 01/11/19 [History] Allergies/Adverse Reactions: Allergy/AdvReac Type Severity Reaction Status Date / Time Sulfa (Sulfonamide Allergy Swelling Verified 01/11/19 10:02 Antibiotics) of Lip/Tongue/Throat Yrshywe-Dkx-Uhb Reductase AdvReac Cramping Verified 01/11/19 10:02 Inhibitor of the [Statins] Muscles Date of admission: 01/10/19 23:28 Primary care physician: Steph Morillo CNP Consults: 01/11/19 18:35 Consult to Pulmonology [CONS] Routine Consulting Provider: [facility] [place] Reason for Consult: shortness of breath and chest pain Call Completed: No 01/12/19 11:11 Consult to Cardiology [CONS] Routine Comment: Consulting Provider: Cardiology Brandi Reason for Consult: patient need non urgent bronchoscopy . evaluation for clearance og anticoagulation Call Completed: No Discharging clinician: Robinson Boyer Anticipated date of discharge: 01/12/19 - Constitutional Vitals: Temp Pulse Resp BP Pulse Ox 98.1 F 65 18 132/69 98 01/12/19 11:48 01/12/19 11:48 01/12/19 11:48 01/12/19 11:48 01/12/19 11:48 General appearance: Present: cooperative, A&O X 3, pleasant, no acute distress, answers questions appropriately Exam: . - Head Head exam: Present: atraumatic, normal inspection - Neck Neck exam general surgery: Present: full ROM, supple, trachea midline - Respiratory Respiratory exam: Present: CTAB - Cardiovascular Cardiovascular exam: Present: RRR, +S1, +S2 - GI/Abdominal GI/Abdominal exam: Present: normal bowel sounds, soft, no peritoneal signs - Neurological Exam Neurological exam: Present: alert, normal gait, oriented X3 - Psychiatric Psychiatric exam: Present: normal affect, normal mood - Skin Skin exam: Present: intact, normal color - Patient Status Disposition: Home, Self-Care Condition: Good Functional capacity at discharge: independent ambulation Overall status at discharge: patient is back to baseline - Discharge Instructions Follow Up With: Steph Morillo CHIEF EXECUTIVE [Primary Care Provider] - 01/20/19 10:00 am Additional Instructions: follow up with cardiology / PCP , pulmonology for out patient bronchoscope - Diet and Activity Activity: increase activity as tolerated Diet: advance to your usual diet <Robinson Boyer - Last Filed: 01/12/19 17:29> - NOTES TO OUTPATIENT PROVIDER Notes to Outpatient Provider: Cardiology asked for AC recommendations prior to bronch.Pt on xarelto for afib. High CHADS VASc score. Okay to hold xarelto 48 hr prior to procedure. Recommend lovenox 1 mg/kg BID 24 hours after holding. (take night before procedure and hold morning of.) Restart xarelto after procedure as soon as safe from pulmonology standpoint. . Orders not resulted at time of discharge: Pending orders 01/10/19 21:20 ECG 12 lead ECG [ECG] Stat Date of Encounter: 01/12/19 - Discharge Diagnosis (1) Diabetes Status: Chronic Qualifiers: Diabetes mellitus type: type 2 Diabetes mellitus complication status: with hyperglycemia Qualified Code(s): E11.65 - Type 2 diabetes mellitus with hyperglycemia; Z79.4 - snf (current) use of insulin (2) Afib Status: Chronic Qualifiers: Atrial fibrillation type: chronic Qualified Code(s): I48.2 - Chronic atrial fibrillation (3) Abnormal CT of the chest Status: Acute (4) Diastolic CHF Priority: Primary Status: Chronic Qualifiers: Heart failure chronicity: chronic Qualified Code(s): I50.32 - Chronic diast olic (congestive) heart failure (5) HTN (hypertension) Status: Chronic Qualifiers: Hypertension type: essential hypertension Qualified Code(s): I10 - Essential (primary) hypertension (6) Hyperlipemia Priority: Secondary Status: Chronic Qualifiers: Hyperlipidemia type: mixed hyperlipidemia Qualified Code(s): E78.2 - Mixed hyperlipidemia (7) Morbid obesity with BMI of 40.0-44.9, adult Priority: Secondary Status: Chronic Hospital course: Ms. Crawford is a 73 year old female - Time Spent with Patient Total time spent providing and/or coordinating discharge services: Date of admission: 01/10/19 23:28 Primary care physician: Steph Morillo CNP Consults: 01/11/19 18:35 Consult to Pulmonology [CONS] Routine Consulting Provider: [facility] Reason for Consult: shortness of breath and chest pain Call Completed: No - Constitutional Vitals: Temp Pulse Resp BP Pulse Ox 98.1 F 65 18 132/69 98 01/12/19 11:48 01/12/19 11:48 01/12/19 11:48 01/12/19 11:48 01/12/19 11:48 - Attending Attestation I examined this patient and my medical decision-making was reviewed with the Resident Physician on 01/12/19. I agree with the documented findings, disposition and treatment plan as described except to the extent set forth below. Ms Crawford has been hospitalized for chest pain. Troponin negative. Initially required oxygen. CTA of chest showed pulmonary edema and fullness in hilum. She does not want to pursue inpatient stress test or bronchoscopy. She is to follow up outpateint. At this time she is afebrile and at baseline. Exam: Alert Comfortable. Mucus membranes dry. Heart irreg and not tachy. No wheeze. Abd soft. Moves all extremities. No rash. Plan D/C today. D/C time 31min
[2019-01-12] MEDS ORDERED: Petrolatum, White OINT.PACK TP PRN (13:38)
--- NOTE | 2019-01-12 14:19 | Event Note ---
Date of Encounter: 01/12/19 Time of Encounter: 14:15 - Cardiology Event Note Cardiology asked for AC recommendations prior to bronch. Discussed with Dr. Madrid. Pt on xarelto for afib. High CHADS VASc score. Okay to hold xarelto 48 hr prior to procedure. Recommend lovenox 1 mg/kg BID 24 hours after holding. ( take night before procedure and hold morning of.) Restart xarelto after procedure as soon as safe from pulmonology standpoint. .
--- NOTE | 2019-01-13 23:30 | Electrocardiograph Report ---
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
== END 2019-01-12 14:44 | disposition home or self-care (01) ==
LOC: CDU 21:09 → EMEROOARM 21:09 → SUATTDRO 23:28 → CDU 01-11 00:40 → 3BNU 01-11 19:33
PROVIDERS: ADMIT Internal Medicine; ATTEND Internal Medicine

== ENCOUNTER 2021-08-09 14:16 | Inpatient (IN) ==
[2021-08-09] MEDS ORDERED: Ondansetron 4 MG/2 ML VIAL IVP ONE (14:31)
[2021-08-09] MEDS ORDERED: Ketorolac 30 MG/ML VIAL IVP ONE (14:31)
[2021-08-09] MEDS ORDERED: 0.9 % Sodium Chloride 1,000 ML IVC ONE (14:31)
[2021-08-09] MEDS ORDERED: Isovue-370 500 ML BOTTLE IVP ONE (14:32)
[2021-08-09 14:53] LABS: Bacteria,Urine Moderate per hpf (None-Few); Bilirubin,Urine Negative (Negative); Blood,Urine Small (Negative); Clarity,Urine Turbid (Clear); Color,Urine Yellow (Yellow); Glucose,Urine (UA) Normal (Normal); Ketones,Urine Negative (Negative); Leukocyte Esterase,Urine Large (Negative); Mucus,Urine Few per lpf (None-Few); Nitrite,Urine Negative (Negative); PH,Urine 6.5 pH Units (5.0-8.0); Protein,Urine 30 mg/dL (Neg-Trace); RBC,Urine 50-100 per hpf (0-3); Specific Gravity,Urine 1.016 (1.010-1.025); Squamous Epithelial Cell,Urine Moderate per hpf (None-Few); Urobilinogen,Urine Normal (Normal); WBC,Urine TNTC per hpf (0-3)
[2021-08-09] MEDS ORDERED: cefTRIAXone 1,000 MG in Water for inj. (sterile) 10 ML IVP ONE (14:55)
[2021-08-09 15:07] LABS: Basophils # 0.1 K/mcL (0.0-0.2); Basophils % 0.5 %; Eosinophils # 0.3 K/mcL (0.0-0.6); Hematocrit 39.9 % (35.3-44.9); Hemoglobin 13.2 g/dL (11.5-15.4); Immature Granulocytes % 0.5 % (0-4); Lymphocytes # 0.9 K/mcL (0.6-4.6); Lymphocytes % 6.5 %; Mean Corpuscular HGB Conc 33.1 g/dL (31.6-35.5); Mean Corpuscular Hemoglobin 31.7 pg (28.0-33.3); Mean Corpuscular Volume 95.7 fL (83.0-100.0); Mean Platelet Volume 10.2 fL (9.4-12.4); Monocytes # 0.8 K/mcL (0.0-1.3); Monocytes % 5.9 %; Platelet Count 296 K/mcL (140-400); Red Blood Count 4.17 M/mcL (3.82-4.97); Red Cell Distribution Width 13.1 % (11.5-14.5); Segmented Neutrophils % 84.6 %; White Blood Count 14.2 K/mcL (4.3-11.1)
[2021-08-09 15:15] LABS: INR 1.5; Prothrombin Time 16.9 Seconds (9.4-12.1)
[2021-08-09 15:18] LABS: Activated Partial Thrombo Time 38.2 Seconds (26.0-36.0)
[2021-08-09 15:27] LABS: Albumin/Globulin Ratio 1.3 (1.1-2.2); Bilirubin,Indirect 0.4 mg/dL (0.0-1.0); Bilirubin,Total 0.4 mg/dL (0.3-1.0); Potassium 3.9 mEq/L (3.5-5.1)
[2021-08-09] MEDS ORDERED: Morphine Sulfate 2 MG/ML SYRINGE IVP STA (15:37)
[2021-08-09] MEDS ORDERED: Metoclopramide 10 MG/2 ML VIAL IVP STA (15:57)
[2021-08-09] MEDS ORDERED: Mag Hydrox/Al Hydrox/Simeth 30 ML UDC PO PRN (17:23)
[2021-08-09] MEDS ORDERED: Melatonin 3 MG TABLET PO PRN (17:23)
[2021-08-09] MEDS ORDERED: *HR* OxyCODONE Immed Rel 5 MG TABLET PO PRN (17:23)
[2021-08-09] MEDS ORDERED: Naloxone 0.4 MG/ML INJ IVP PRN (17:23)
[2021-08-09] MEDS ORDERED: Acetaminophen 325 MG TABLET PO PRN (17:23)
[2021-08-09] MEDS ORDERED: 0.9 % Sodium Chloride 1,000 ML IVC SCH (17:30)
[2021-08-09] MEDS ORDERED: *HR* Dextrose 50 % in Water (Syg) 50 ML SYRINGE IVP PRN (17:47)
[2021-08-09] MEDS ORDERED: D5% in Water 1,000 ML IVC PRN (17:47)
[2021-08-09] MEDS ORDERED: Dextrose Gel 15 GM/37.5 ML TUBE PO PRN ×2 (17:47)
[2021-08-09] MEDS: Ondansetron ODT 4 MG TAB.RAPDIS SL PRN ×2 (17:56→22:22)
[2021-08-09] MEDS ORDERED: Furosemide 40 MG/4 ML VIAL IVP ONE (18:07)
[2021-08-09] MEDS ORDERED: Perflutren Lipid Microsphere 1.3 ML in 0.9 % Sodium Chloride 8.7 ML IVP PRN ×2 (18:08→18:10)
[2021-08-09 20:59] LABS: Adenovirus Not Detected (Not Detect); Bordetella Pertussis Not Detected (Not Detect); Chlamydophila pneumoniae Not Detected (Not Detect); Coronavirus 229E Not Detected (Not Detect); Coronavirus HKU1 Not Detected (Not Detect); Coronavirus NL63 Not Detected (Not Detect); Coronavirus OC43 Not Detected (Not Detect); Human Metapneumovirus Not Detected (Not Detect); Human Rhinovirus/Enterovirus Not Detected (Not Detect); Influenza A Subtype 2009 H1 Not Detected (Not Detect); Influenza B Not Detected (Not Detect); Mycoplasma pneumoniae Not Detected (Not Detect); Parainfluenza Virus 1 Not Detected (Not Detect); Parainfluenza Virus 2 Not Detected (Not Detect); Parainfluenza Virus 3 Not Detected (Not Detect); Parainfluenza Virus 4 Not Detected (Not Detect); Respiratory Syncytial Virus Not Detected (Not Detect); SARS-CoV-2 Not Detected (Not Detect)
[2021-08-09] MEDS ORDERED: Insulin LISPRO 300 UNITS/3 ML VIAL SUBQ SCH (21:00)
[2021-08-10] MEDS ORDERED: Isovue-300 50ML VIAL ONE (07:14)
[2021-08-10 07:16] LABS: Hematocrit 38.5 % (35.3-44.9); Hemoglobin 12.3 g/dL (11.5-15.4); Mean Corpuscular HGB Conc 31.9 g/dL (31.6-35.5); Mean Platelet Volume 10.5 fL (9.4-12.4); Platelet Count 228 K/mcL (140-400); Red Blood Count 3.97 M/mcL (3.82-4.97); Red Cell Distribution Width 13.5 % (11.5-14.5)
[2021-08-10] MEDS ORDERED: Insulin LISPRO 300 UNITS/3 ML VIAL SUBQ SCH (07:30)
[2021-08-10] MEDS ORDERED: *HR* Propofol 200 MG/20 ML VIAL IVP ONE (07:34)
[2021-08-10] MEDS ORDERED: Lidocaine -MPF 2% 5 ML VIAL ONE (07:34)
[2021-08-10] MEDS ORDERED: *HR* FentaNYL (PF) 100 MCG/2 ML VIAL ONE (07:34)
[2021-08-10 07:36] LABS: Calcium 9.1 mg/dL (8.6-10.3); Potassium 4.3 mEq/L (3.5-5.1)
[2021-08-10] MEDS ORDERED: Ondansetron 4 MG/2 ML VIAL ONE (07:36)
[2021-08-10 07:58] LABS: White Blood Count 36.3 K/mcL (4.3-11.1)
[2021-08-10 08:14] LABS: Lymphocytes # 2.9 K/mcL (0.6-4.6); Monocytes # 1.1 K/mcL (0.0-1.3); Neutrophils # 30.1 K/mcL (1.6-8.9)
[2021-08-10 08:17] LABS: Platelet Estimate Normal (Normal)
[2021-08-10] MEDS ORDERED: Acetaminophen IV 1,000 MG/100 ML BAG IVPB ONE ×3 (08:30→10:52)
[2021-08-10] MEDS ORDERED: *HR* Succinylcholine 200 MG/10 ML VIAL IVP ONE (08:50)
[2021-08-10] MEDS ORDERED: Lidocaine HCL 4 ML Topical Solution (Laryng-O-Jet Kit Sterile Pak) TP ONE (08:52)
[2021-08-10] MEDS ORDERED: cefTRIAXone 1,000 MG in 0.9 % Sodium Chloride Mini Bag 100 ML IVPB SCH (09:00)
[2021-08-10] MEDS ORDERED: Nitroglycerin 0.4 MG TAB.SUBL SL PRN (09:20)
[2021-08-10] MEDS ORDERED: Albuterol 2.5 MG/3 ML NEBULIZER IH PRN (09:20)
[2021-08-10] MEDS ORDERED: *HR* FentaNYL (PF) 100 MCG/2 ML VIAL IVP PRN (09:22)
[2021-08-10] MEDS ORDERED: Dextrose Gel 15 GM/37.5 ML TUBE PO PRN ×2 (10:52)
[2021-08-10] MEDS ORDERED: Naloxone 0.4 MG/ML INJ IVP PRN (10:52)
[2021-08-10] MEDS ORDERED: *HR* Dextrose 50 % in Water (Syg) 50 ML SYRINGE IVP PRN (10:52)
[2021-08-10] MEDS ORDERED: Mag Hydrox/Al Hydrox/Simeth 30 ML UDC PO PRN (10:52)
[2021-08-10] MEDS ORDERED: Ondansetron ODT 4 MG TAB.RAPDIS SL PRN (10:52)
[2021-08-10] MEDS ORDERED: Perflutren Lipid Microsphere 1.3 ML in 0.9 % Sodium Chloride 8.7 ML IVP PRN (10:52)
[2021-08-10] MEDS ORDERED: Melatonin 3 MG TABLET PO PRN (10:52)
[2021-08-10] MEDS ORDERED: D5% in Water 1,000 ML IVC PRN (10:52)
[2021-08-10] MEDS: Insulin LISPRO 300 UNITS/3 ML VIAL SUBQ SCH ×3 (11:55→21:29)
[2021-08-10] MEDS ORDERED: Acetaminophen 325 MG TABLET PO PRN (12:02)
[2021-08-10] MEDS: 0.9 % Sodium Chloride 1,000 ML IVC SCH (15:31)
[2021-08-10] MEDS: *HR* Rivaroxaban 15 MG TABLET PO SCH (17:38)
[2021-08-10 18:14] LABS: Sodium, Urine 69.5 mEq/L
[2021-08-10 18:38] LABS: Creatinine,Urine 117 mg/dL; Microalbumin,Urine > 1350 mg/L; Protein/Creatinine Ratio,Urine 4.79 mg/mg (0.00-0.20)
[2021-08-10] MEDS: *HR* OxyCODONE Immed Rel 5 MG TABLET PO PRN (21:30)
[2021-08-11 04:12] LABS: Hemoglobin 12.3 g/dL (11.5-15.4)
[2021-08-11 04:14] LABS: Hematocrit 39.2 % (35.3-44.9); Mean Corpuscular HGB Conc 31.4 g/dL (31.6-35.5); Mean Corpuscular Hemoglobin 30.9 pg (28.0-33.3); Mean Corpuscular Volume 98.5 fL (83.0-100.0); Mean Platelet Volume 11.1 fL (9.4-12.4); Platelet Count 212 K/mcL (140-400); Red Blood Count 3.98 M/mcL (3.82-4.97); Red Cell Distribution Width 13.7 % (11.5-14.5)
[2021-08-11 04:20] LABS: White Blood Count 35.6 K/mcL (4.3-11.1)
[2021-08-11 04:33] LABS: Calcium 8.6 mg/dL (8.6-10.3); Phosphorous 5.1 mg/dL (2.7-4.5); Potassium 5.1 mEq/L (3.5-5.1); Uric Acid 7.9 mg/dL (2.3-7.6)
[2021-08-11 04:38] LABS: Lymphocytes # 2.9 K/mcL (0.6-4.6); Monocytes # 1.4 K/mcL (0.0-1.3); Neutrophils # 31.3 K/mcL (1.6-8.9); Platelet Estimate Normal (Normal)
[2021-08-11 04:55] LABS: Hepatitis B Surface Antigen Nonreactive (Nonreactive)
[2021-08-11 05:24] LABS: Hepatitis C Virus Antibody Nonreactive (Nonreactive)
[2021-08-11 05:25] LABS: Hepatitis B Core IgM Nonreactive (Nonreactive)
[2021-08-11 05:26] LABS: Hepatitis A Antibody IgM Nonreactive (Nonreactive)
[2021-08-11] MEDS: *HR* OxyCODONE Immed Rel 5 MG TABLET PO PRN ×2 (06:02→13:06)
[2021-08-11] MEDS: 0.9 % Sodium Chloride 1,000 ML IVC SCH (06:29)
[2021-08-11] MEDS: Insulin LISPRO 300 UNITS/3 ML VIAL SUBQ SCH ×4 (08:59→21:13)
[2021-08-11] MEDS: cefTRIAXone 1,000 MG in 0.9 % Sodium Chloride Mini Bag 100 ML IVPB SCH (09:00)
[2021-08-11] MEDS ORDERED: Sodium Bicarbonate 75 MEQ in 0.45 % Sodium Chloride 1,000 ML IVC SCH (14:15)
[2021-08-11] MEDS: *HR* Rivaroxaban 15 MG TABLET PO SCH (17:21)
[2021-08-11] MEDS: Sodium Bicarbonate 75 MEQ in 0.45 % Sodium Chloride 1,000 ML IVC SCH (20:58)
[2021-08-12 05:21] LABS: Basophils # 0.1 K/mcL (0.0-0.2); Basophils % 0.3 %; Calcium 8.1 mg/dL (8.6-10.3); Eosinophils # 0.2 K/mcL (0.0-0.6); Eosinophils % 1.2 %; Hematocrit 32.4 % (35.3-44.9); Hemoglobin 10.8 g/dL (11.5-15.4); Immature Granulocytes % 2.6 % (0-4); Lymphocytes # 1.1 K/mcL (0.6-4.6); Lymphocytes % 5.3 %; Mean Corpuscular HGB Conc 33.3 g/dL (31.6-35.5); Mean Corpuscular Hemoglobin 31.8 pg (28.0-33.3); Mean Corpuscular Volume 95.3 fL (83.0-100.0); Monocytes # 0.9 K/mcL (0.0-1.3); Monocytes % 4.7 %; Neutrophils # 17.2 K/mcL (1.6-8.9); Platelet Count 196 K/mcL (140-400); Potassium 4.1 mEq/L (3.5-5.1); Red Cell Distribution Width 13.6 % (11.5-14.5); Segmented Neutrophils % 85.9 %
[2021-08-12] MEDS: Insulin LISPRO 300 UNITS/3 ML VIAL SUBQ SCH ×4 (09:21→21:26)
[2021-08-12] MEDS: Loratadine 10 MG TABLET PO SCH (09:31)
[2021-08-12] MEDS: Aspirin Enteric Coated 81 MG Tablet PO SCH (09:31)
[2021-08-12] MEDS: cefTRIAXone 1,000 MG in 0.9 % Sodium Chloride Mini Bag 100 ML IVPB SCH (09:32)
[2021-08-12] MEDS: *HR* Rivaroxaban 15 MG TABLET PO SCH (16:15)
[2021-08-12] MEDS: *HR* OxyCODONE Immed Rel 5 MG TABLET PO PRN (20:07)
[2021-08-13] MEDS: *HR* OxyCODONE Immed Rel 5 MG TABLET PO PRN ×3 (05:07→18:16)
[2021-08-13 05:52] LABS: Basophils # 0.1 K/mcL (0.0-0.2); Basophils % 0.5 %; Eosinophils # 0.6 K/mcL (0.0-0.6); Eosinophils % 4.2 %; Hematocrit 33.3 % (35.3-44.9); Hemoglobin 10.8 g/dL (11.5-15.4); Immature Granulocytes % 0.9 % (0-4); Lymphocytes # 1.1 K/mcL (0.6-4.6); Lymphocytes % 8.2 %; Mean Corpuscular HGB Conc 32.4 g/dL (31.6-35.5); Mean Corpuscular Hemoglobin 30.9 pg (28.0-33.3); Mean Corpuscular Volume 95.1 fL (83.0-100.0); Mean Platelet Volume 11.4 fL (9.4-12.4); Monocytes # 1.1 K/mcL (0.0-1.3); Monocytes % 8.1 %; Neutrophils # 10.7 K/mcL (1.6-8.9); Platelet Count 187 K/mcL (140-400); Red Cell Distribution Width 13.2 % (11.5-14.5); Segmented Neutrophils % 78.1 %; White Blood Count 13.7 K/mcL (4.3-11.1)
[2021-08-13 06:15] LABS: Calcium 8.6 mg/dL (8.6-10.3); Potassium 3.7 mEq/L (3.5-5.1)
[2021-08-13] MEDS: Aspirin Enteric Coated 81 MG Tablet PO SCH (08:37)
[2021-08-13] MEDS: Loratadine 10 MG TABLET PO SCH (08:37)
[2021-08-13] MEDS: cefTRIAXone 1,000 MG in 0.9 % Sodium Chloride Mini Bag 100 ML IVPB SCH (08:38)
[2021-08-13] MEDS: Insulin LISPRO 300 UNITS/3 ML VIAL SUBQ SCH ×4 (08:42→21:00)
[2021-08-13] MEDS: *HR* Rivaroxaban 15 MG TABLET PO SCH (17:45)
[2021-08-14] MEDS: Sodium Bicarbonate 75 MEQ in 0.45 % Sodium Chloride 1,000 ML IVC SCH (01:08)
[2021-08-14 03:03] LABS: Hematocrit 31.4 % (35.3-44.9); Mean Corpuscular HGB Conc 31.8 g/dL (31.6-35.5); Mean Corpuscular Hemoglobin 30.9 pg (28.0-33.3); Mean Corpuscular Volume 96.9 fL (83.0-100.0); Mean Platelet Volume 10.8 fL (9.4-12.4); Platelet Count 215 K/mcL (140-400); Red Blood Count 3.24 M/mcL (3.82-4.97); White Blood Count 11.1 K/mcL (4.3-11.1)
[2021-08-14 03:19] LABS: Calcium 8.5 mg/dL (8.6-10.3); Potassium 3.7 mEq/L (3.5-5.1)
[2021-08-14 07:50] VITALS: BP 149/80; PULSE 71; TEMP 98.5; O2SAT 98
[2021-08-14] MEDS: Loratadine 10 MG TABLET PO SCH (08:17)
[2021-08-14] MEDS: cefTRIAXone 1,000 MG in 0.9 % Sodium Chloride Mini Bag 100 ML IVPB SCH (08:18)
[2021-08-14] MEDS: Aspirin Enteric Coated 81 MG Tablet PO SCH (08:18)
[2021-08-14] MEDS: Insulin LISPRO 300 UNITS/3 ML VIAL SUBQ SCH (08:19)
[2021-08-14] MEDS: *HR* OxyCODONE Immed Rel 5 MG TABLET PO PRN (09:41)
== END 2021-08-14 10:12 | disposition home or self-care (01) | DRG 659 ==
LOC: 3ANU 14:16 → EMEROOARM 14:16 → SUATTDRO 21:01 → 3ANU 21:30
PROVIDERS: ADMIT Family Medicine; ATTEND Family Medicine

== ENCOUNTER 2021-12-12 21:02 | Observation (INO) ==
[2021-12-12] MEDS ORDERED: Ondansetron 4 MG/2 ML VIAL IVP ONE (22:59)
[2021-12-12] MEDS ORDERED: Iopamidol - 370 500 ML MLS IVP ONE (22:59)
[2021-12-12] MEDS ORDERED: 0.9 % Sodium Chloride 1,000 ML IVC SCH (23:00)
[2021-12-12 23:32] LABS: Basophils # 0.1 K/mcL (0.0-0.2); Basophils % 0.8 %; Eosinophils # 0.5 K/mcL (0.0-0.6); Eosinophils % 5.5 %; Hematocrit 30.6 % (35.3-44.9); Hemoglobin 9.4 g/dL (11.5-15.4); Immature Granulocytes % 0.3 % (0-4); Lymphocytes # 0.5 K/mcL (0.6-4.6); Lymphocytes % 5.8 %; Mean Corpuscular HGB Conc 30.7 g/dL (31.6-35.5); Mean Corpuscular Hemoglobin 27.6 pg (28.0-33.3); Mean Corpuscular Volume 89.7 fL (83.0-100.0); Mean Platelet Volume 9.4 fL (9.4-12.4); Monocytes # 0.6 K/mcL (0.0-1.3); Monocytes % 6.7 %; Neutrophils # 7.1 K/mcL (1.6-8.9); Platelet Count 370 K/mcL (140-400); Red Blood Count 3.41 M/mcL (3.82-4.97); Red Cell Distribution Width 16.7 % (11.5-14.5); Segmented Neutrophils % 80.9 %; White Blood Count 8.8 K/mcL (4.3-11.1)
[2021-12-12 23:47] LABS: Calcium 9.8 mg/dL (8.6-10.3); Potassium 3.2 mEq/L (3.5-5.1)
[2021-12-12 23:59] LABS: Thyroid Stimulating Hormone 4.997 mcIU/mL (0.340-5.600)
[2021-12-13 00:25] LABS: Bilirubin,Urine Negative (Negative); Blood,Urine Trace-intact (Negative); Clarity,Urine Slightly Cloudy (Clear); Color,Urine Yellow (Yellow); Glucose,Urine (UA) Normal (Normal); Ketones,Urine 15 mg/dL (Negative); Leukocyte Esterase,Urine Moderate (Negative); Nitrite,Urine Positive (Negative); PH,Urine 5.5 pH Units (5.0-8.0); Protein,Urine Negative (Neg-Trace); Urobilinogen,Urine Normal (Normal)
[2021-12-13] MEDS ORDERED: cefTRIAXone 1,000 MG in 0.9 % Sodium Chloride 10 ML IVP ONE (02:24)
[2021-12-13] MEDS ORDERED: Perflutren Lipid Microsphere 1.3 ML in 0.9 % Sodium Chloride 8.7 ML IVP PRN (03:10)
[2021-12-13 05:46] LABS: Hematocrit 31.7 % (35.3-44.9); Hemoglobin 9.6 g/dL (11.5-15.4); Mean Corpuscular HGB Conc 30.3 g/dL (31.6-35.5); Mean Corpuscular Hemoglobin 27.6 pg (28.0-33.3); Mean Corpuscular Volume 91.1 fL (83.0-100.0); Mean Platelet Volume 9.5 fL (9.4-12.4); Platelet Count 367 K/mcL (140-400); Red Blood Count 3.48 M/mcL (3.82-4.97); Red Cell Distribution Width 16.8 % (11.5-14.5); White Blood Count 8.7 K/mcL (4.3-11.1)
[2021-12-13] MEDS ORDERED: Furosemide 20 MG TABLET PO PRN (06:17)
[2021-12-13 06:18] LABS: Calcium 9.4 mg/dL (8.6-10.3); Chol/HDL Ratio 4.1 (0-4.9); Potassium 3.3 mEq/L (3.5-5.1)
[2021-12-13 08:59] LABS: Estimated Average Glucose 128 mg/dl; Hemoglobin A1C 6.1 %
[2021-12-13] MEDS: amLODIPine 5 MG TABLET PO SCH (09:47)
[2021-12-13] MEDS: Aspirin Enteric Coated 81 MG Tablet PO SCH (09:48)
[2021-12-13] MEDS: *HR* Rivaroxaban 15 MG TABLET PO SCH (17:01)
[2021-12-14] MEDS: Aspirin Enteric Coated 81 MG Tablet PO SCH (08:22)
[2021-12-14] MEDS: amLODIPine 5 MG TABLET PO SCH (08:22)
[2021-12-14] MEDS: cefTRIAXone 1,000 MG in 0.9 % Sodium Chloride 10 ML IVP SCH (08:23)
[2021-12-14] MEDS ORDERED: Albuterol 2.5 MG/3 ML NEBULIZER IH ONE (11:12)
[2021-12-14] MEDS ORDERED: methylPREDNISolone 125 MG/2 ML VIAL IVP ONE (12:03)
[2021-12-14] MEDS ORDERED: Furosemide 20 MG/2 ML VIAL IVP ONE (12:03)
[2021-12-14] MEDS ORDERED: Dextrose Gel 15 GM/37.5 ML TUBE PO PRN ×2 (13:05)
[2021-12-14] MEDS ORDERED: *HR* Dextrose 50 % in Water (Syg) 50 ML SYRINGE IVP PRN (13:05)
[2021-12-14] MEDS ORDERED: D5% in Water 1,000 ML IVC PRN (13:05)
[2021-12-14 13:23] LABS: Calcium 9.9 mg/dL (8.6-10.3); Potassium 4.3 mEq/L (3.5-5.1)
[2021-12-14] MEDS: Insulin LISPRO 300 UNITS/3 ML VIAL SUBQ SCH (16:39)
[2021-12-14] MEDS: *HR* Rivaroxaban 15 MG TABLET PO SCH (16:39)
[2021-12-15 05:17] LABS: Basophils % 0.2 %; Hematocrit 29.4 % (35.3-44.9); Hemoglobin 8.9 g/dL (11.5-15.4); Immature Granulocytes % 0.7 % (0-4); Lymphocytes # 0.5 K/mcL (0.6-4.6); Lymphocytes % 5.9 %; Mean Corpuscular HGB Conc 30.3 g/dL (31.6-35.5); Mean Corpuscular Hemoglobin 27.7 pg (28.0-33.3); Mean Corpuscular Volume 91.6 fL (83.0-100.0); Mean Platelet Volume 9.9 fL (9.4-12.4); Monocytes # 0.1 K/mcL (0.0-1.3); Monocytes % 1.1 %; Platelet Count 302 K/mcL (140-400); Red Blood Count 3.21 M/mcL (3.82-4.97); Red Cell Distribution Width 16.2 % (11.5-14.5); Segmented Neutrophils % 92.1 %; White Blood Count 8.4 K/mcL (4.3-11.1)
[2021-12-15 05:18] LABS: Neutrophils # 7.7 K/mcL (1.6-8.9)
[2021-12-15 05:44] LABS: Albumin 3.4 g/dL (3.5-5.7); Albumin/Globulin Ratio 1.1 (1.1-2.2); Bilirubin,Total 0.4 mg/dL (0.3-1.0); Calcium 9.5 mg/dL (8.6-10.3); Potassium 4.1 mEq/L (3.5-5.1); Total Protein 6.4 g/dL (6.4-8.9)
[2021-12-15] MEDS: Insulin LISPRO 300 UNITS/3 ML VIAL SUBQ SCH ×3 (08:17→17:46)
[2021-12-15] MEDS ORDERED: Furosemide 20 MG TABLET PO SCH (09:00)
[2021-12-15] MEDS: amLODIPine 5 MG TABLET PO SCH (09:55)
[2021-12-15] MEDS: Aspirin Enteric Coated 81 MG Tablet PO SCH (09:55)
[2021-12-15] MEDS: cefTRIAXone 1,000 MG in 0.9 % Sodium Chloride 10 ML IVP SCH ×2 (09:56→10:43)
[2021-12-15] MEDS: Furosemide 40 MG/4 ML VIAL IVP SCH (09:56)
[2021-12-15] MEDS: *HR* Rivaroxaban 15 MG TABLET PO SCH (17:50)
[2021-12-16 06:01] LABS: Basophils # 0.1 K/mcL (0.0-0.2); Basophils % 0.5 %; Eosinophils # 0.2 K/mcL (0.0-0.6); Hemoglobin 8.8 g/dL (11.5-15.4); Immature Granulocytes % 0.5 % (0-4); Lymphocytes # 0.8 K/mcL (0.6-4.6); Lymphocytes % 7.2 %; Mean Corpuscular HGB Conc 30.3 g/dL (31.6-35.5); Mean Corpuscular Hemoglobin 27.2 pg (28.0-33.3); Mean Corpuscular Volume 89.5 fL (83.0-100.0); Mean Platelet Volume 9.7 fL (9.4-12.4); Monocytes # 0.9 K/mcL (0.0-1.3); Monocytes % 7.7 %; Neutrophils # 9.3 K/mcL (1.6-8.9); Platelet Count 367 K/mcL (140-400); Red Blood Count 3.24 M/mcL (3.82-4.97); Red Cell Distribution Width 16.4 % (11.5-14.5); Segmented Neutrophils % 82.1 %; White Blood Count 11.4 K/mcL (4.3-11.1)
[2021-12-16 06:24] LABS: Albumin 3.4 g/dL (3.5-5.7); Albumin/Globulin Ratio 1.1 (1.1-2.2); Bilirubin,Total 0.3 mg/dL (0.3-1.0); Calcium 9.6 mg/dL (8.6-10.3); Potassium 3.8 mEq/L (3.5-5.1); Total Protein 6.4 g/dL (6.4-8.9)
[2021-12-16] MEDS: Insulin LISPRO 300 UNITS/3 ML VIAL SUBQ SCH ×3 (08:57→18:07)
[2021-12-16] MEDS: amLODIPine 5 MG TABLET PO SCH (09:00)
[2021-12-16] MEDS: Aspirin Enteric Coated 81 MG Tablet PO SCH (09:00)
[2021-12-16] MEDS: cefTRIAXone 1,000 MG in 0.9 % Sodium Chloride 10 ML IVP SCH (09:01)
[2021-12-16] MEDS: Furosemide 40 MG/4 ML VIAL IVP SCH (09:01)
[2021-12-16] MEDS: *HR* Rivaroxaban 15 MG TABLET PO SCH (18:07)
[2021-12-17] MEDS: Aspirin Enteric Coated 81 MG Tablet PO SCH (08:09)
[2021-12-17] MEDS: amLODIPine 5 MG TABLET PO SCH (08:10)
[2021-12-17] MEDS ORDERED: Cefdinir 300 MG CAPSULE PO ONE (08:11)
[2021-12-17] MEDS ORDERED: Furosemide 40 MG TABLET PO ONE (08:13)
[2021-12-17] MEDS: Furosemide 40 MG/4 ML VIAL IVP SCH (08:15)
[2021-12-17] MEDS: cefTRIAXone 1,000 MG in 0.9 % Sodium Chloride 10 ML IVP SCH (08:16)
[2021-12-17] MEDS: Insulin LISPRO 300 UNITS/3 ML VIAL SUBQ SCH ×2 (08:17→12:19)
[2021-12-17 11:02] VITALS: BP 127/73; PULSE 73; TEMP 98.3; O2SAT 92
== END 2021-12-17 13:07 | disposition home or self-care (01) ==
LOC: 3BNU 21:02 → EMEROOARM 21:02 → SUATTDRO 12-13 02:38 → 3BNU 12-13 03:15
PROVIDERS: ADMIT Student in an Organized Health Care Education/Training Program; ATTEND Nurse Practitioner